=== PATIENT | male | born 1955 | race Caucasian/White ===

== ENCOUNTER 2019-08-25 09:59 | Observation (INO) ==
[2019-08-25] MEDS ORDERED: Nitroglycerin 0.4 MG TAB.SUBL SL PRN (10:33)
[2019-08-25] MEDS ORDERED: Aspirin 81 MG TAB.CHEW PO STA (10:41)
[2019-08-25 10:52] LABS: White Blood Count 9.6 K/mcL (4.3-11.1)
[2019-08-25 10:53] LABS: Basophils # 0.1 K/mcL (0.0-0.2); Basophils % 0.6 %; Eosinophils % 0.4 %; Hematocrit 40.6 % (37.5-50.1); Hemoglobin 13.8 g/dL (12.9-16.9); Immature Granulocytes % 0.8 % (0-4); Lymphocytes # 1.1 K/mcL (0.6-4.6); Lymphocytes % 11.8 %; Mean Corpuscular Hemoglobin 29.9 pg (28.0-33.3); Mean Corpuscular Volume 88.1 fL (83.0-100.0); Mean Platelet Volume 13.1 fL (9.4-12.4); Monocytes # 0.8 K/mcL (0.0-1.3); Monocytes % 7.9 %; Neutrophils # 7.5 K/mcL (1.6-8.9); Platelet Count 172 K/mcL (140-400); Red Blood Count 4.61 M/mcL (4.19-5.50); Red Cell Distribution Width 14.6 % (11.5-14.5); Segmented Neutrophils % 78.5 %
[2019-08-25 10:57] LABS: Activated Partial Thrombo Time 27.2 Seconds (26.0-36.0); Prothrombin Time 11.7 Seconds (9.4-12.1)
[2019-08-25 11:30] LABS: Calcium 14.8 mg/dL (8.6-10.3); Potassium 3.3 mEq/L (3.5-5.1); Troponin I 0.04 ng/mL (< 0.04)
[2019-08-25] MEDS ORDERED: 0.9 % Sodium Chloride 500 ML IVC STA (11:31)
[2019-08-25] MEDS ORDERED: 0.9 % Sodium Chloride 1,000 ML IVC ONE (11:42)
[2019-08-25] MEDS ORDERED: *HR* FentaNYL (PF) 100 MCG/2 ML VIAL IVP ONE (12:02)
[2019-08-25 12:16] LABS: VBG Ionized Calcium 1.79 mmol/L (1.15-1.35)
[2019-08-25] MEDS ORDERED: Ondansetron 4 MG/2 ML VIAL IVP PRN (12:23)
[2019-08-25] MEDS ORDERED: Acetaminophen 325 MG TABLET PO PRN (12:23)
[2019-08-25] MEDS ORDERED: 0.9 % Sodium Chloride 1,000 ML IVC SCH (12:30)
[2019-08-25 12:46] LABS: Magnesium 1.2 mg/dL (1.6-2.6); Phosphorous 3.5 mg/dL (2.7-4.5)
[2019-08-25] MEDS: 0.9 % Sodium Chloride 1,000 ML IVC SCH ×2 (15:10→22:29)
[2019-08-25] MEDS: *HR* FentaNYL (PF) 100 MCG/2 ML VIAL IVP PRN ×2 (15:14→19:42)
[2019-08-25] MEDS ORDERED: Dextrose Gel 15 GM/37.5 ML TUBE PO PRN ×2 (16:33)
[2019-08-25] MEDS ORDERED: D5% in Water 1,000 ML IVC PRN (16:33)
[2019-08-25] MEDS ORDERED: *HR* Dextrose 50 % in Water (Syg) 50 ML SYRINGE IVP PRN (16:33)
[2019-08-25] MEDS ORDERED: Perflutren Lipid Microsphere 1.3 ML in 0.9 % Sodium Chloride 8.7 ML IVP ONE (16:59)
[2019-08-25] MEDS: Insulin LISPRO 300 UNITS/3 ML VIAL SQ SCH ×2 (18:41→22:28)
[2019-08-25] MEDS: Insulin DETEMIR 100 UNIT/ML X5UNITS SQ SCH (22:28)
[2019-08-26 03:48] LABS: Hematocrit 35.9 % (37.5-50.1); Mean Corpuscular HGB Conc 33.7 g/dL (31.6-35.5); Mean Corpuscular Hemoglobin 29.9 pg (28.0-33.3); Mean Corpuscular Volume 88.6 fL (83.0-100.0); Mean Platelet Volume 12.5 fL (9.4-12.4); Platelet Count 134 K/mcL (140-400); Red Blood Count 4.05 M/mcL (4.19-5.50); Red Cell Distribution Width 14.6 % (11.5-14.5); White Blood Count 8.8 K/mcL (4.3-11.1)
[2019-08-26 03:51] LABS: Hemoglobin 12.1 g/dL (12.9-16.9)
[2019-08-26 04:12] LABS: BUN/Creatinine Ratio 16 (6-26); Blood Urea Nitrogen 23 mg/dL (8-23); Calcium 11.5 mg/dL (8.6-10.3); Carbon Dioxide 31 mEq/L (23-29); Chloride 106 mEq/L (98-107); Chol/HDL Ratio 4.9 (0-4.9); Cholesterol 123 mg/dL (< 200); Glucose 159 mg/dL (70-105); HDL Cholesterol 25 mg/dL (40-59); Osmolality,Calculated 299 (280-300); Potassium 3.6 mEq/L (3.5-5.1); Sodium 141 mEq/L (136-145); Triglycerides 431 mg/dL (< 150); Troponin I 0.03 ng/mL (< 0.04); eGFR For African Americans > 60 (> 60); eGFR For Non-African Americans 50 (> 60)
[2019-08-26] MEDS: 0.9 % Sodium Chloride 1,000 ML IVC SCH (05:00)
[2019-08-26] MEDS: Aspirin Enteric Coated 81 MG Tablet PO SCH (08:29)
[2019-08-26] MEDS: amLODIPine 5 MG TABLET PO SCH (08:30)
[2019-08-26] MEDS: predniSONE 10 MG TABLET PO SCH (08:30)
[2019-08-26] MEDS: Finasteride 5 MG TABLET PO SCH (08:30)
[2019-08-26] MEDS: Insulin LISPRO 300 UNITS/3 ML VIAL SQ SCH ×4 (08:31→20:03)
[2019-08-26 08:36] LABS: Estimated Average Glucose 249 mg/dl
[2019-08-26] MEDS ORDERED: Regadenoson 0.4 MG/5 ML SYRINGE IVP ONE (10:55)
[2019-08-26] MEDS: Metoprolol XL (24 HR) Succ 25 MG TAB.ER.24H PO SCH (13:12)
[2019-08-26] MEDS: Ringers Solution, Lactated 1,000 ML IVC SCH ×2 (13:12→17:00)
[2019-08-26] MEDS: Insulin DETEMIR 100 UNIT/ML X5UNITS SQ SCH (20:03)
[2019-08-27] MEDS: Ringers Solution, Lactated 1,000 ML IVC SCH ×2 (00:43→08:33)
[2019-08-27 07:01] LABS: Calcium 10.1 mg/dL (8.6-10.3); Potassium 3.6 mEq/L (3.5-5.1)
[2019-08-27 07:17] VITALS: BP 155/68
[2019-08-27] MEDS: Insulin LISPRO 300 UNITS/3 ML VIAL SQ SCH (07:35)
[2019-08-27] MEDS: Metoprolol XL (24 HR) Succ 25 MG TAB.ER.24H PO SCH (08:30)
[2019-08-27] MEDS: Finasteride 5 MG TABLET PO SCH (08:30)
[2019-08-27] MEDS: predniSONE 10 MG TABLET PO SCH (08:30)
[2019-08-27] MEDS: Aspirin Enteric Coated 81 MG Tablet PO SCH (08:30)
[2019-08-27] MEDS: amLODIPine 5 MG TABLET PO SCH (08:30)
== END 2019-08-27 11:00 | disposition home or self-care (01) ==
LOC: EMEROOARM 09:59 → 3BNU 09:59 → SUATTDRO 12:29 → 3BNU 13:23
PROVIDERS: ADMIT Internal Medicine; ATTEND Internal Medicine